=== PATIENT | male | born 1995 | race Two or more races ===

== ENCOUNTER 2025-04-10 12:17 | Emergency (ER) | payer OTHER ==
[2025-04-10 12:36] VITALS: RESP 18; TEMP 98.6; BMI 30.1
[2025-04-10 13:58] LABS: ABSOLUTE IMMATURE GRANULOCYTES 0.01 x10^3/uL (0.0-0.031); BASOPHILS # 0.02 x10^3/uL (0.01-0.08); EOSINOPHIL % 0.7 % (0.8-7.0); EOSINOPHILS # 0.03 x10^3/uL (0.04-0.54); MCHC 33.7 g/dl (32.3-36.5); MEAN CELL VOLUME 83.4 fl (79.0-92.2); MEAN PLT VOLUME 11.1 fl (9.4-12.4); MONOCYTE # 0.31 x10^3/uL (0.30-0.82); MONOCYTE % 7.7 % (5.3-12.2); RDW 12.3 % (11.9-15.3)
[2025-04-10 14:43] LABS: GLUCOSE,RANDOM 108 mg/dL (74-106); TOT PROT 8.2 g/dl (6.4-8.2)
[2025-04-10 14:44] LABS: CO2 27 mmol/L (21-32)
[2025-04-10 14:46] LABS: ALK PHOS 114 U/L (40-150)
[2025-04-10 14:49] LABS: CREATININE 1.05 mg/dL (0.55-1.3); SGOT/AST 28 U/L (5-34); SGPT/ALT 57 U/L (0-55)
[2025-04-10] MEDS: SODIUM CHLORIDE 0.9% 500 ML INFUS.BAG IV ONE (14:51)
[2025-04-10 15:22] LABS: HCV DIAGNOSTIC IN-HOUSE W/RFLX NON-REACTIVE (NONREACTIVE)
[2025-04-10 15:23] LABS: HIV INTERPRETATION NEGATIVE (NEGATIVE)
[2025-04-10 16:03] VITALS: BP 103/60; PULSE 80
[2025-04-10] MEDS ORDERED: KETOROLAC TROMETHAMINE 30 MG/1 ML VIAL ONE (16:58)
[2025-04-10] MEDS: KETOROLAC TROMETHAMINE 30 MG/1 ML VIAL IVPUSH ONE (17:01)
== END 2025-04-10 16:53 | disposition home or self-care (01) ==
LOC: JER 12:17
PROC: 3E0333Z Introduction of Anti-inflammatory into Peripheral Vein, Percutaneous Approach (ICD-10-PCS; principal; 2025-04-10)
DX: R51.9 Headache, unspecified (principal); R42 Dizziness and giddiness; R11.2 Nausea with vomiting, unspecified
CPT/HCPCS: 36415; 70450-TC; 80053; 82550; 84484; 85025; 86803; 87389; 93005; 93010; 99285-25